=== PATIENT | female | born 1985 | race Caucasian/White ===

== ENCOUNTER 2018-10-17 21:36 | Emergency (ER) | payer OTHER ==
[~2018-10-17] VITALS: Ht 154.9 cm; Wt 61.2 kg
[2018-10-18] MEDS ORDERED: ZPAK PO (00:02)
[2018-10-18] MEDS ORDERED: VENTOLIN HFA 1818 GM INH (00:02)
[2018-10-18] MEDS ORDERED: PREDNISONE 20 M20 MG PO (00:02)
[2018-10-18 00:44] VITALS: BP 108/66
== END 2018-10-18 00:46 | disposition home or self-care (01) ==
LOC: ER 21:36
DX: J20.9 Acute bronchitis, unspecified (principal); J30.9 Allergic rhinitis, unspecified